=== PATIENT | male | born 1955 | race Caucasian/White ===

== ENCOUNTER 2017-09-13 02:00 | Emergency (ER) | payer OTHER ==
[~2017-09-13] VITALS: Ht 165.1 cm; Wt 66.4 kg
[2017-09-13] MEDS ORDERED: KEFLEX500 MG PO (05:51)
[2017-09-13] MEDS ORDERED: ULTRACET1 TABLET PO (05:51)
[2017-09-13 06:05] VITALS: BP 168/84
== END 2017-09-13 06:07 | disposition home or self-care (01) ==
LOC: EME 02:00
PROC: 0HQFXZZ Repair Right Hand Skin, External Approach (ICD-10-PCS; principal; 2017-09-13)
DX: S62.634B Displaced fracture of distal phalanx of right ring finger, initial encounter for open fracture (principal); S61.214A Laceration without foreign body of right ring finger without damage to nail, initial encounter; W23.0XXA Caught, crushed, jammed, or pinched between moving objects, initial encounter; I10 Essential (primary) hypertension; F17.200 Nicotine dependence, unspecified, uncomplicated
CPT/HCPCS: 73130; 99281; 99284; J0690; S0020

== ENCOUNTER → 2017-09-17 | Outpatient (CLI) | payer OTHER ==
[~2017-09-17] MED LIST: KEFLEX500 MG PO; ULTRACET1 TABLET PO
== END | disposition home or self-care (01) ==
LOC: CDC 10:33
DX: Z01.810 Encounter for preprocedural cardiovascular examination (principal); M79.644 Pain in right finger(s); S68.629A Partial traumatic transphalangeal amputation of unspecified finger, initial encounter
CPT/HCPCS: 93000

== ENCOUNTER 2017-09-23 15:58 | Emergency (ER) | payer OTHER ==
[~2017-09-23] VITALS: Ht 165.1 cm; Wt 63.3 kg
[2017-09-23 19:22] VITALS: BP 164/82
== END 2017-09-23 19:22 | disposition home or self-care (01) ==
LOC: EME 15:58
DX: M79.652 Pain in left thigh (principal); I10 Essential (primary) hypertension; F17.200 Nicotine dependence, unspecified, uncomplicated
CPT/HCPCS: 93971; 99281; 99284